=== PATIENT | female | born 1980 | race Two or more races ===

== ENCOUNTER 2018-04-19 19:23 | Outpatient (CLI) | payer OTHER | END 2018-04-19 19:30 | disposition home or self-care (01) | LOC: RAD 19:23 | DX: J01.90 Acute sinusitis, unspecified (principal) ==

== ENCOUNTER → 2018-12-08 | Outpatient (CLI) | payer OTHER | END | disposition home or self-care (01) | LOC: RAD 18:47 | DX: M21.6X9 Other acquired deformities of unspecified foot (principal); M21.90 Unspecified acquired deformity of unspecified limb ==

== ENCOUNTER 2019-03-12 09:03 | Emergency (ER) | payer OTHER ==
[~2019-03-12] VITALS: Ht 162.6 cm; Wt 72.6 kg
== END 2019-03-12 11:38 | disposition home or self-care (01) ==
LOC: ER 09:03
DX: M54.5 Low back pain (principal)